=== PATIENT | male | born 1975 | race Caucasian/White ===

== ENCOUNTER 2019-10-10 10:14 | Outpatient (CLI) | payer OTHER, SELFPAY ==
--- NOTE | ~2019-10-10 | US_ITS ---
EXAMINATION: US scrotum doppler DATE: 10/10/2019 11:18 INDICATION: Scrotal mass TECHNIQUE: Testicular sonogram utilizing grayscale and Doppler COMPARISON: None. FINDINGS: The right testis measures 4.0 x 2.9 x 2.5 cm. The left testis measures 4.5 x 2.7 x 2.4 cm. Symmetric normal grayscale appearance to both testes. There is normal vascular flow to both testes. The right e pididymis is normal with normal vascular flow. The left epididymis is normal with normal vascular cayetano w. There is no varicocele. Minimal bilateral hydroceles. IMPRESSION: 1. Minimal bilateral hydroceles. Otherwise normal scrotal ultrasound. Reviewed, dictated and finalized at location A.
== END 2019-10-10 10:15 | disposition home or self-care (01) ==
PROVIDERS: PCP Internal Medicine; Visit Provider Internal Medicine
DX: N50.89 Other specified disorders of the male genital organs (principal)
CPT/HCPCS: 76870; 93976

== ENCOUNTER 2020-04-05 13:03 | Emergency (ER) | payer OTHER, SELFPAY ==
[2020-04-05] VITALS (21 sets, daily range): BP systolic 122–151; BP diastolic 77–89; PULSE 102–115; RESP 13–30; TEMP 36.8; O2SAT 90–96
--- NOTE | ~2020-04-05 | XR_ITS ---
EXAMINATION: XR chest 1V portable EXAM DATE: 04/05/2020 14:28 INDICATION: SOA/Cough, COVID+ . TECHNIQUE: Portable AP frontal chest x-ray was obtained. There is no prior study for comparison. FINDINGS: Mild to moderate amount of patchy ill-defined bilateral acute airspace disease, probably CO VID pneumonia. There are no pleural effusions. Cardiomediastinal silhouette is normal. There is no pneumothorax suspected. The bones and soft tissues are unremarkable. IMPRESSION: Patchy mild to moderate amount of acute infection. Probably COVID pneumonia. Reviewed, dictated and finalized at location A. NDER DIE MACHINE OPERATOR IMPRESSION: Patchy mild to moderate amount of acute infection. Probably COVID p neumonia.
--- NOTE | 2020-04-05 13:13 | ECG_ITS ---
Measurements Intervals [place] Rate: 107 P: 1 FL: 154 QRS: 5 QRSD: 79 T: 17 QT: 302 QTc: 405 Interpretive Statements SINUS TACHYCARDIA BORDERLINE T WAVE ABNORMALITY- INFERIOR LEADS ABNORMAL ECG Electronically Signed On 04-05-2020 17:01:11 GLOST KILN OPERATOR by Truman Costa D.O.
[2020-04-05] MEDS: SODIUM CHLORIDE 0.9% IV 1,000 ML 999 ML IV CONT (14:13)
[2020-04-05 14:26] LABS: Eosinophils Percent Auto 0.3 % (0-4.4); Hematocrit 42.3 % (42.0-52.0); Hemoglobin 14.4 g/dL (14.0-18.0); Immature Granulocyte Absolute 0.02 K/mm3 (0.00-0.031); Immature Granulocyte Percent A 0.6 % (0-0.5); Lymphocytes Absolute Auto 0.81 K/mm3 (0.9-3.2); Lymphocytes Percent Auto 25.8 % (18.3-44.2); Mean Corpuscular Hemoglobin 29.9 pg (26-34); Mean Corpuscular Volume 87.8 fl (80-100); Mean Platelet Volume 9.4 fl (7.4-10.4); Monocytes Absolute Auto 0.2 K/mm3 (0.1-0.6); Monocytes Percent Auto 6.4 % (2.6-8.5); Neutrophils Absolute Auto 2.1 K/mm3 (1.3-6.7); Neutrophils Percent Auto 66.9 % (45.5-73.1); Platelet Count Result 144 k/mm3 (150-375); Red Blood Count 4.82 M/mm3 (4.6-6.20); Red Cell Distribution Width 12.4 % (11.5-14.5); White Blood Count 3.1 K/mm3 (4.5-10.0)
--- NOTE | 2020-04-05 14:33 | PC.NURSE ---
amb in room with rn. pt weak and sob. o2 sat ranged from 93-92 with a momentary drop to 91.
[2020-04-05 14:38] LABS: Alanine Aminotransferase 66 U/L (4-50); Albumin Level 3.9 g/dL (3.5-5.1); Alkaline Phosphatase 131 U/L (38-126); Anion Gap 3 mmol/L (8-16); Aspartate Amino Transferase 59 U/L (17-59); Bilirubin,Total 0.7 mg/dL (0.2-1.3); Blood Urea Nitrogen 12 mg/dL (9-20); Calcium 8.5 mg/dL (8.4-10.2); Carbon Dioxide 36 mmol/L (22-30); Chloride 97 mmol/L (98-107); Estimated CRCL calculation 94 ml/min; Estimated Glomerular Filt Rate > 60; Glucose 116 mg/dL (75-110); Potassium 4.2 mmol/L (3.4-5.0); Sodium 136 mmol/L (137-145)
--- NOTE | 2020-04-05 15:23 | ED.GENADULT ---
HPI - General Adult General Chief complaint: Shortness of Breath/Dyspnea Stated complaint: COVID Positive, Low Oxygen Time Seen by Provider: 04/05/20 13:11 History of Present Illness HPI narrative: Patient is a 44-year-old male who presents ER with concerns for shortness of breath in the setting of COVID-19. Patient reports he has had the diagnosis for 8 days. Reports he thought he was getting better yesterday when his fevers had backed off and he was not coughing as much. He has been taking Mucinex DM. Reports overnight he started having fevers again and chills. Today has been persistently coughing. Reports that during the day he was wearing a pulse oximeter that showed his oxygen saturation was 85% with any sort of exertion. Related Data Allergies Allergy/AdvReac Type Severity Reaction Status Date / Time No Known Allergies Allergy Verified 04/05/20 13:07 Review of Systems Review of Systems: All systems reviewed & are unremarkable except as noted in HPI and below Constitutional: Constitutional: Reports chills, Reports fever(s) and Reports weakness ENT: Denies nasal congestion and Denies sore throat Comments: No loss of smell or taste. Cardiovascular: Cardiovascular: Denies chest pain and Denies radiating jaw, neck or arm pain Respiratory: Respiratory: Reports cough, Reports dyspnea and Denies wheezing Gastrointestinal: Gastrointestinal: Denies abdominal pain, Denies diarrhea, Denies nausea and Denies vomiting PMFSH Past Medical History Medical History (Updated 04/05/20 @ 15:30 by Dylan Rodgers MD) High triglycerides Surgical History Surgical History (Updated 04/05/20 @ 15:26 by Dylan Rodgers MD) No pertinent past surgical history Family History Family History Father Diabetes mellitus Grandparent Family history of malignant neoplasm of breast, Onset Age: 96 Social History Social History Smoking status: Never smoker Alcohol intake: current Gender identity (if verbalized by the patient): Male Exam Narrative: Exam Narrative: GENERAL: Well-appearing, well-nourished, and in no acute distress. HEAD: Normocephalic, atraumatic. CHEST: Clear to auscultation. No respiratory distress but occasional coughing spells. HEART: Tachycardic and regular. Normal peripheral pulses. EXTREMITIES: Normal range of motion. No edema. SKIN: Warm, dry, no rash. NEURO: Alert and oriented x3. PSYCH: Normal mood and affect. Course Course Emergency Course: Patient hydrated. Still tachycardic but now febrile, will give acetaminophen. No hypoxia with ambulation. Does not require persistent oxygen not a candidate for admission. There is Covid pneumonia which patient has been educated about but antibiotics not indicated. Leukopenia without shift.. Will start on albuterol for home. Vital Signs Vital signs: Vital Signs Temperature 98.2 F 04/05/20 13:04 Pulse Rate 109 H 04/05/20 13:04 Respiratory Rate 17 04/05/20 13:04 Blood Pressure 137/77 04/05/20 13:04 Pulse Oximetry 93 04/05/20 13:04 Temperature 98.2 F 04/05/20 13:04 Pulse Rate 104 H 04/05/20 14:35 Respiratory Rate 30 H 04/05/20 14:35 Blood Pressure 151/83 H 04/05/20 14:35 Pulse Oximetry 92 04/05/20 14:35 Medical Decision Making Vital Signs Vital Signs: Vital Signs Temperature 98.2 F 04/05/20 13:04 Pulse Rate 109 H 04/05/20 13:04 Respiratory Rate 17 04/05/20 13:04 Blood Pressure 137/77 04/05/20 13:04 Pulse Oximetry 93 04/05/20 13:04 Temperature 98.2 F 04/05/20 13:04 Pulse Rate 104 H 04/05/20 14:35 Respiratory Rate 30 H 04/05/20 14:35 Blood Pressure 151/83 H 04/05/20 14:35 Pulse Oximetry 92 04/05/20 14:35 Lab Data Result diagrams: 04/05/20 14:14 04/05/20 14:14 Labs: Lab Results 04/05/20 04/05/20 Range/Units 14:14
--- NOTE | 2020-04-05 15:27 | PC.NURSE ---
Patient has a temperature of 102.0 at 15:26
[2020-04-05] MEDS: ACETAMINOPHEN 500 MG TABLET 1000 MG PO (15:41)
== END 2020-04-05 16:08 | disposition home or self-care (01) ==
PROVIDERS: Emergency Provider Emergency Medicine; PCP Internal Medicine
DX: U07.1 COVID-19 (principal); J12.89 Other viral pneumonia
CPT/HCPCS: 36415; 71045; 80053; 85025; 93005; 96360; 99283; A9270; J7030